=== PATIENT | male | born 1985 | race Two or more races ===

== ENCOUNTER 2017-03-19 00:16 | Emergency (ER) | payer SELFPAY ==
[~2017-03-19] VITALS: Ht 180.3 cm; Wt 96.6 kg
--- NOTE | 2017-03-19 00:26 | NUR ---
PT TO ER BED 7. PT BIBRA FOR [employer], PT IS NOW ORIENTED X 3. PT TOOK 2 ATIVAN AND DRANK 2 BEERS. PT STATES HE HAS CHRONIC BACK PAIN. PT PLACED ON DISPATCHER CHIEF OIL. VSS/RESP EVEN UNLABORED/NAD NOTED/SKIN WARM AND DRY/DENIES N-V-D. AWAITING MD BAXTER.
[2017-03-19] MEDS ORDERED: IV NS 0.9% 500 ML BAG IV ONE (00:30)
--- NOTE | 2017-03-19 00:50 | NUR ---
LAB AT BEDSIDE TO DRAW.
[2017-03-19 01:02] LABS: BASOPHILS # (AUTO) 0.1 /CMM (0.0-0.2); BASOPHILS % (AUTO) 1.2 % (0.0-2.0); EOSINOPHILS % (AUTO) 0.1 % (0.0-6.0); HEMATOCRIT 42 % (39-51); HEMOGLOBIN 14.1 g/dL (13.5-17.5); LYMPHOCYTES # (AUTO) 1.4 /CMM (0.8-4.8); LYMPHOCYTES % (AUTO) 17.8 % (20.0-44.0); MEAN CORPUSCULAR HEMOGLOBIN 29 PG (26.0-33.0); MEAN CORPUSCULAR HGB CONC 34 g/dl (31.0-36.0); MEAN CORPUSCULAR VOLUME 84 fL (80-96); MONOCYTES # (AUTO) 0.5 /CMM (0.1-1.30); MONOCYTES % (AUTO) 6.3 % (2.0-12.0); NEUTROPHILS # (AUTO) 5.8 /CMM (1.8-8.9); NEUTROPHILS % (AUTO) 74.6 % (43.0-81.0); PLATELET COUNT (AUTO) 314 /CMM (150-450); RDW COEFFICIENT OF VARIATION 14.4 (11.5-15.0); RED BLOOD CELL COUNT(AUTO) 4.93 MIL/uL (4.5-6.0); WHITE BLOOD COUNT (AUTO) 7.8 K/uL (4.3-11.0)
[2017-03-19 01:17] LABS: CALCIUM, SERUM 8.9 mg/dL (8.5-10.1); CREATININE 0.6 mg/dL (0.6-1.3); POTASSIUM 3.3 mmol/L (3.5-5.1)
[2017-03-19 01:21] LABS: ALBUMIN 4.2 g/dL (3.4-5.0); BILIRUBIN,DIRECT 0.1 mg/dL (0.0-0.2); BILIRUBIN,TOTAL 0.5 mg/dL (0.2-1.0); TOTAL PROTEIN, SERUM 8.4 g/dL (6.4-8.2)
[2017-03-19 01:22] LABS: SALICYLATE 0.5 mg/dL (2.8-20.0)
[2017-03-19] MEDS ORDERED: ONDANSETRON HCL/PF 4 MG/2 ML VIAL IM ONE (01:30)
--- NOTE | 2017-03-19 01:30 | NUR ---
UNABLE TO OBTAINED IV, DR GIANG MADE AWARE. IV CANCELED PER .
--- NOTE | 2017-03-19 01:57 | NUR ---
URINE SPECIMEN OBTAINED AND SENT TO THE LAB.
[2017-03-19 02:07] LABS: APPEARANCE,URINE CLEAR (CLEAR); BILIRUBIN,URINE NEGATIVE (NEGATIVE); BLOOD, URINE NEGATIVE Ery/uL (NEGATIVE); COLOR,URINE YELLOW (YELLOW); KETONES,URINE NEGATIVE (NEGATIVE); LEUKOCYTE ESTERASE ,URINE NEGATIVE (NEGATIVE); NITRITE, URINE NEGATIVE (NEGATIVE); PROTEIN,URINE NEGATIVE (NEGATIVE); UGLUCOSE NEGATIVE (NEGATIVE); UROBILINOGEN,URINE 0.2 EU/dL (0.2)
--- NOTE | 2017-03-19 02:49 | NUR ---
PT PLACED IN A C-COLLAR PER MD ORDERS.
--- NOTE | 2017-03-19 03:42 | NUR ---
PT RESTING QUIETLY, AROUSES TO VOICE. VSS/RESP EVEN UNLABORED.
--- NOTE | 2017-03-19 04:04 | NUR ---
pt removed c-collar. pt ambulatory with steady gait. dr joy notified.
--- NOTE | 2017-03-19 05:24 | NUR ---
NO CHANGES, PT RESTING QUIETLY. VSS.
--- NOTE | 2017-03-19 06:42 | NUR ---
Patient discharged to home in stable condition. Written and verbal after care instructions given. Patient verbalizes understanding of instruction, instructed not to drive. Patient ambulatory with a steady gait.
[2017-03-19 06:43] VITALS: BP 108/61
== END 2017-03-19 06:44 | disposition home or self-care (01) ==
LOC: ER 00:18
DX: F10.129 Alcohol abuse with intoxication, unspecified (principal); F41.9 Anxiety disorder, unspecified; G89.29 Other chronic pain
CPT/HCPCS: 36415; 72125; 80048; 80076; 80305; 80329; 85025; 81001; 96372; 99285; A4606; G0480 ×2; J7040; L0172; Z7610; 81000-TC